=== PATIENT | female | born 1995 | race Caucasian/White ===

== ENCOUNTER 2017-05-16 13:59 | Emergency (ER) | payer OTHER ==
[~2017-05-16] VITALS: Ht 160 cm; Wt 91.8 kg
[2017-05-16] MEDS ORDERED: RISPERDAL2 MG PO (14:09)
[2017-05-16 15:09] LABS: HEMATOCRIT 34.9 % (37.0-47.0); HEMOGLOBIN 11.1 gm/dL (12.0-15.0); MCH 20.9 pg (26.0-34.0); MCHC 31.9 g/dL (28.0-37.0); MCV 65.4 fL (80.0-100.0); MPV 8.3 fl. (7.2-11.1); NUCLEATED RBCS 0 /100WBC; PLATELET COUNT* 338 thou/uL (150-400); RBC 5.33 mil/uL (4.20-5.00); RDW-CV 18.6 % (10.5-14.5); URINE BILIRUBIN 1+ (Negative); URINE BLOOD TRACE (Negative); URINE CLARITY CLEAR; URINE COLOR YELLOW; URINE GLUCOSE-RANDOM NEGATIVE (Negative); URINE KETONES TRACE (Negative); URINE LEUKOCYTES-REFLEX NEGATIVE (Negative); URINE NITRITE-REFLEX NEGATIVE (Negative); URINE PROTEIN TRACE (Negative); URINE SPECIFIC GRAVITY >= 1.030 (1.005-1.030); URINE UROBILINOGEN 0.2 E.U./dl (0.2-1.0)
[2017-05-16 15:12] LABS: ICTOTEST (BILI CONFIRMATORY) Negative (Negative)
[2017-05-16 15:18] LABS: CALCIUM 9.2 mg/dL (8.5-10.1); CREATININE 0.7 mg/dL (0.6-1.3); POTASSIUM 3.4 mmol/L (3.5-5.1)
[2017-05-16 15:23] LABS: ALBUMIN 3.6 g/dL (3.4-5.0); TOTAL BILIRUBIN 0.3 mg/dL (<0.1-1.0); TOTAL PROTEIN 7.8 g/dL (6.4-8.2)
[2017-05-16 15:30] LABS: ABSOLUTE BASOPHILS 0.1 thou/uL (0.0-0.2); ABSOLUTE LYMPHOCYTES 1.4 thou/uL (0.8-5.3); ABSOLUTE MONOCYTES 0.7 thou/uL (0.0-1.2); ABSOLUTE NEUTROPHILS 8.8 thou/uL (1.6-8.1); ANISOCYTOSIS 1+; HYPOCHROMASIA 2+; MICROCYTES 2+; PLATELET ESTIMATE ADEQUATE
[2017-05-16] MEDS ORDERED: TRAMADOL 50 MG50 MG PO (17:04)
[2017-05-16] MEDS ORDERED: CLEOCIN HCL150 MG PO (17:15)
[2017-05-16 17:25] VITALS: BP 155/80
== END 2017-05-16 17:27 | disposition home or self-care (01) ==
LOC: M.ERS 13:59
PROVIDERS: Physician Assistant
DX: B27.90 Infectious mononucleosis, unspecified without complication (principal); K11.21 Acute sialoadenitis; J11.1 Influenza due to unidentified influenza virus with other respiratory manifestations; J45.909 Unspecified asthma, uncomplicated; Z88.1 Allergy status to other antibiotic agents; Z91.040 Latex allergy status; Z88.0 Allergy status to penicillin

== ENCOUNTER 2018-11-13 08:42 | Observation (INO) | payer OTHER, MEDICAID ==
[~2018-11-13] VITALS: Ht 157.5 cm; Wt 91.6 kg
[~2018-11-13 08:42] MED LIST: CLEOCIN HCL150 MG PO; RISPERDAL2 MG PO; TRAMADOL 50 MG50 MG PO
[2018-11-13 08:45] VITALS: BP 137/92
[2018-11-13] MEDS ORDERED: ZESTRIL40 MG PO (08:49)
[2018-11-13] MEDS ORDERED: ATIVAN0.5 MG PO (08:49)
[2018-11-13 09:23] LABS: ABSOLUTE EOSINOPHILS 0.2 thou/uL (0.0-0.7); ABSOLUTE MONOCYTES 0.5 thou/uL (0.0-1.2); ABSOLUTE NEUTROPHILS 5.6 thou/uL (1.6-8.1); BASOPHILS 0.5 %; EOSINOPHILS 2.2 %; HEMOGLOBIN 12.1 gm/dL (12.0-15.0); MCH 25.1 pg (26.0-34.0); MCHC 32.7 g/dL (28.0-37.0); MCV 76.9 fL (80.0-100.0); MONOCYTES 6.5 %; NUCLEATED RBCS 0 /100WBC; PLATELET COUNT* 276 thou/uL (150-400); POLYS 66.8 %; RBC 4.81 mil/uL (4.20-5.00); RDW-CV 16.7 % (10.5-14.5); WBC 8.4 thou/uL (4.0-11.0)
[2018-11-13 09:33] LABS: ANION GAP 8 mmol/L (7-16); BUN 16 mg/dL (7-18); CALCIUM 8.8 mg/dL (8.5-10.1); CHLORIDE 104 mmol/L (98-107); CO2 25 mmol/L (21-32); CREATININE 0.7 mg/dL (0.6-1.3); GLUCOSE 95 mg/dL (70-99); SODIUM 137 mmol/L (136-145)
[2018-11-13 09:42] LABS: ALBUMIN 3.9 g/dL (3.4-5.0); ALKALINE PHOSPHATASE 104 U/L (46-116); SGOT 27 U/L (15-37); SGPT 29 U/L (30-65); TOTAL BILIRUBIN 0.1 mg/dL (<0.1-1.0); TOTAL PROTEIN 7.4 g/dL (6.4-8.2); TROPONIN-I LEVEL <0.06 ng/mL (<0.06)
[2018-11-13 09:44] LABS: POTASSIUM 4.1 mmol/L (3.5-5.1)
[2018-11-13 12:58] VITALS: BP 130/63
[2018-11-13 13:27] VITALS: BP 116/67
[2018-11-13 16:00] VITALS: BP 104/56
--- NOTE | 2018-11-13 16:28 | 2DMMODE ---
[place] [address] 2 D/M-MODE ECHOCARDIOGRAM Name: NARESH ROONEY Room: [address] IN [facility]#: [id number] Admission: 11/13/18 Attend Phys: Kenya Hanna, Discharge: Date of : 89 Date of Service: 11/13/18 1628 Report #: [id number] THIS REPORT FOR: //name// APPROVED REPORT Study performed: 11/13/2018 14:44:17 EXAM: Comprehensive 2D, Doppler, and color-flow Echocardiogram Patient Location: In-Patient Room #: [facility] Status: routine BSA: 1.85 HR: 80 bpm BP: 116/67 mmHg Rhythm: NSR Other Information Study Quality: Good Indications Syncope Chest Pain 2D Dimensions IVSd: 9.98 (7-11mm) LVOT Diam: 20.38 (18-24mm) LVDd: 44.94 mm PWd: 8.96 (7-11mm) Ascending Ao: 28.30 (22-36mm) LVDs: 24.98 (25-40mm) Aortic Root: 28.09 mm Volumes Left Atrial Volume (Systole) LA ESV Index: 23.20 mL/m2 Aortic Valve AoV Peak Wenceslao.: 1.73 m/s AO Peak Gr.: 11.96 mmHg LVOT Max P.46 mmHg AO Mean Gr.: 6.47 mmHg LVOT Mean P.82 mmHg LVOT Max V: 1.45 m/s AO V2 VTI: 31.64 cm LVOT Mean V: 0.89 m/s MARIELLA (VTI): 2.87 cm2 LVOT V1 VTI: 27.85 cm Mitral Valve E/A Ratio: 1.58 MV Decel. Time: 196.83 [place] [address] 2 D/M-MODE ECHOCARDIOGRAM Name: NARESH ROONEY Room: [address] IN ..#: [id number] Admission: 11/13/18 Attend Phys: Kenya Hanna, Discharge: Date of : 89 Date of Service: 11/13/18 1628 Report #: [id number] MV E Max Wenceslao.: 0.97 m/s MV PHT: 57.08 ms MVA (PHT): 3.85 cm2 TDI E/Lateral E': 4.41 E/Medial E': 6.93 Medial E' Wenceslao.: 0.14 m/s Lateral E' Wenceslao.: 0.22 m/s Pulmonary Valve PV Peak Wenceslao.: 1.11 m/s PV Peak Gr.: 4.89 mmHg Left Ventricle The left ventricle is normal size. There is normal LV segmental wall motion. There is normal left ventricular wall thickness. Left ventricular systolic function is normal. The left ventricular ejection fraction is within the normal range. LVEF is 65%. The left ventricular diastolic function is normal. Right Ventricle The right ventricle is normal size. The right ventricular systolic function is normal. Atria The left atrium size is normal. The right atrium size is normal. Aortic Valve The aortic valve is normal in structure. No aortic regurgitation is present. There is no aortic valvular stenosis. Mitral Valve The mitral valve is normal in structure. There is no mitral valve regurgitation noted. No evidence of mitral valve stenosis. Tricuspid Valve The tricuspid valve is normal in structure. Unable to assess PA pressure. Trace tricuspid regurgitation. Pulmonic Valve The pulmonary valve is normal in structure. There is no pulmonic valvular regurgitation. Great Vessels The aortic root is normal in size. IVC is normal in size and collapses >50% [place] [address] 2 D/M-MODE ECHOCARDIOGRAM Name: NARESH ROONEY Room: [address] [place] [facility]#: [id number] Admission: 11/13/18 Attend Phys: Kenya Hanna, Discharge: Date of : 89 Date of Service: 11/13/18 1628 Report #: [id number] Pericardium There is no pericardial effusion. <Conclusion> Left ventricular systolic function is normal. The left ventricular ejection fraction is within the normal range. <ELECTRONICALLY SIGNED> By: John Delgadillo MD, FACC 11/13/18 1628 1628 162 John Delgadillo MD, FACC /INF
--- NOTE | 2018-11-13 17:15 | EKG ---
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
--- NOTE | 2018-11-13 18:30 | NUR ---
PT ADMITTED TO TELEMETRY. PT C/O OF CHEST PAIN. PRN HYDROCODONE ADMININSTERED WITH RELIEFE. PT C/O OF THROBBING HEADACHE. PRN TRAMADOL ADMINISTERED. REFER TO EMAR. PT UP STAND BY ASSIST.
[2018-11-13 20:10] VITALS: BP 112/67
[2018-11-14 00:37] VITALS: BP 127/65
[2018-11-14 04:00] VITALS: BP 121/69
[2018-11-14 05:43] LABS: CHOLESTEROL 113 mg/dL (<200); HDL CHOLESTEROL 34 mg/dL (>40); LDL CHOLESTEROL 65 mg/dL (<100); TC:HDL 3.3 Ratio (Not establshd); TRIGLYCERIDE 71 mg/dL (<150); VLDL 14 mg/dL (<40)
[2018-11-14 05:45] LABS: SERUM ASSESSMENT Clear
--- NOTE | 2018-11-14 06:15 | NUR ---
PT ALERT AND ORIENTED. VSS ON RA. ASSESSMENT DOCUMENTED. STANDBY ASSIST. PT SLEPT THROUGH SHIFT. PAIN MED GIVEN FOR CP. RH IV SL. CALL LIGHT WITHIN REACH. HOURLY ROUNDINGS MADE. ANTICIPATED DC TODAY. WILL CONTINUE TO MONITOR.
[2018-11-14 07:25] VITALS: BP 122/65
[2018-11-14 08:30] VITALS: BP 121/69
--- NOTE | 2018-11-14 08:55 | NUR ---
ASSUMED CARE OF PATIENT AT 0700. PATIENT AXOX4, ASSESSMENT CHARTED. PATIENT STATES SHE HAS SOME PAIN THIS MORNING, CHEST PRESSURE AND WOULD LIKE MEDICINE AND LIDOCAINE PATCH. NO NAUSEA OR SHORTNESS OF AIR. WAITING FOR DOCTOR TO ROUND TO DETERMINE PLAN OF CARE FOR THE DAY. BED IN LOWEST POSITION, CARDIAC MONTIOR IN PLACE.
[2018-11-14 10:14] VITALS: BP 121/69
[2018-11-14] MEDS ORDERED: TYLENOL325 MG PO (10:19)
--- NOTE | 2018-11-14 10:44 | NUR ---
PATIENT DISCHARGED WITH MOTHER BY WHEELCHAIR WITH NURSING STAFF. ALL BELONGINGS SENT WITH PATIENT. ALL DISCHARGE INFORMATION SENT WITH PATIENT AND WORK RELASE FORM.
--- NOTE | 2018-11-15 16:36 | CON ---
[address] [address] CONSULTATION Name: NARESH ROONEY Room: [address] Criss Trujillo#: [id number] Admission: 11/13/18 Attend Phys: Kenya Hanna MD Discharge: 11/14/18 Date of : 89 Report #: [id number] THIS REPORT FOR: //name// CC: [facility] physician/PCP Kenya Hanna DATE OF SERVICE: 11/13/2018 CARDIOLOGY CONSULTATION HISTORY OF PRESENT ILLNESS: The patient is a 23-year-old single white female who I was asked to see in the hospital today after she complained of chest pain. The patient has no previous history of heart disease. She has had no previous cardiac evaluation. She stays fairly active. She delivered one in the past and had no cardiac complications. Recently, she has had a headache. She was at work at [employer] today, up on a ladder when she felt lightheaded. She started coming down the ladder, apparently fell to the ground. She apparently had a brief loss of consciousness. She then drove here to [place] and admitted. She denied any palpitations or seizure activity. No recent vomiting or bleeding. She also noticed ache in the left side of her chest. She described heaviness. She has had no trauma to her chest. Denied any rash. It was not related to food or coughing. She has been short of breath recently. PAST MEDICAL HISTORY: She is G2, P1, last menstrual period 3 days ago. She has had a and tonsillectomy. She has a history of hypertension. MEDICATIONS: Include lisinopril and Ativan. ALLERGIES: SHE HAS AN ALLERGY TO KEFLEX. FAMILY HISTORY: Mother had stent. SOCIAL HISTORY: She is single, lives with her mother in [place]. She does have a daughter here in [place]. No smoking or alcohol abuse. No illicit drug use. REVIEW OF SYSTEMS: She has had a history of headaches. She has asthma. No history of liver disease, kidney disease, cancer, psychiatric illness or chronic skin condition. PHYSICAL EXAMINATION: GENERAL: Revealed a young white female, lying in bed. She appeared in no distress. VITAL SIGNS: Blood pressure 120/70, pulse is 80, she is afebrile. HEENT: She is anicteric. Conjunctivae are pink. Mucous members moist. NECK: Veins [place] [address] CONSULTATION Name: NARESH ROONEY [id number] Admission: 11/13/18 Attend Phys: Kenya Hanna MD Discharge: 11/14/18 Date of : 89 Report #: [id number] CHEST: Clear to auscultation. CARDIOVASCULAR: Regular rate and rhythm. ABDOMEN: Soft. EXTREMITIES: Had no edema. Dorsalis pedis pulse 2+ bilaterally. SKIN: Warm, dry. NEUROLOGIC: Nonfocal. LYMPH: No adenopathy. MUSCULOSKELETAL: No joint effusion. RADIOLOGICAL DATA: ECG shows a normal sinus rhythm without ST or T-wave change. Her workup, she had x-rays in the Emergency Room today, included a CT scan of the head that showed normal heart, no acute abnormality. She had a chest x-ray that showed normal heart size, clear lung jovel. LABORATORY WORK: Sodium 137, creatinine 0.7. Troponin 0.06. White blood cell count 8.4 and hemoglobin 12. IMPRESSION AND RECOMMENDATIONS: 1. Chest pain. Suspect noncardiac. I would not recommend stress testing. 2. Syncope. Reason unclear. Suspect vasovagal. I would consider sending the patient home with an event recorder. 3. Recent headache. Negative CT scan of the head. 4. History of asthma. The patient has used an inhaler in the past. <ELECTRONICALLY SIGNED> By: John Delgadillo MD, FACC 11/15/18 1636 1416 [id number] Delgadillo MD, FACC /nt
== END 2018-11-14 10:37 | disposition home or self-care (01) ==
LOC: M.ERS 08:42 → M.2W 10:32 → M.TBA-ER 10:32 → M.2W 13:06
PROVIDERS: Emergency Medicine Emergency Medical Services; Internal Medicine Cardiovascular Disease; ADMIT Internal Medicine
DX: R55 Syncope and collapse (principal); I10 Essential (primary) hypertension; R07.89 Other chest pain; K11.21 Acute sialoadenitis; J45.909 Unspecified asthma, uncomplicated; R51 Headache; Z79.899 Other long term (current) drug therapy

== ENCOUNTER 2018-11-25 17:08 | Emergency (ER) | payer OTHER ==
[~2018-11-25] VITALS: Ht 157.5 cm; Wt 71.7 kg
[~2018-11-25 17:08] MED LIST changes: +ATIVAN0.5 MG PO; +TYLENOL325 MG PO; +ZESTRIL40 MG PO
[2018-11-25] MEDS ORDERED: LOPRESSOR50 PO (17:15)
[2018-11-25] MEDS ORDERED: EPIPEN 2-P0.3 MG/0.3 IM (17:17)
[2018-11-25 18:25] VITALS: BP 132/78
== END 2018-11-25 18:25 | disposition home or self-care (01) ==
LOC: M.ERS 17:08
DX: T78.1XXA Other adverse food reactions, not elsewhere classified, initial encounter (principal); J45.909 Unspecified asthma, uncomplicated; F41.9 Anxiety disorder, unspecified; I10 Essential (primary) hypertension; Z91.013 Allergy to seafood; Z88.1 Allergy status to other antibiotic agents; Z91.040 Latex allergy status; Z88.0 Allergy status to penicillin